=== PATIENT | male | born 1965 | race African-American/Black ===

== ENCOUNTER → 2023-12-12 | Outpatient (REF) | payer OTHER ==
[~2023-12-12] MED LIST: IOPAMIDOL 370 MG/ML 100 ML INFUS..BTL INJ ONE; SODIUM CHLORIDE 0.9% 250ML 250 ML ONE
[2023-12-12 14:03] LABS: CREATININE, SERUM 1.44 mg/dL (0.72-1.25)
== END ==
LOC: CT 12:56
PROVIDERS: ATTEND Nurse Practitioner
DX: R31.21 Asymptomatic microscopic hematuria (principal)
CPT/HCPCS: 36415; 74178; 82565; 84520; J7050; Q9967